=== PATIENT | female | born 1960 | race Caucasian/White ===

== ENCOUNTER 2018-04-28 07:03 | Emergency (ER) | payer MEDICAID ==
[2018-04-28] MEDS ORDERED: Proparacaine 0.5% Ophth Soln 15 ML Bottle EYELF ONE (07:31)
--- NOTE | 2018-04-28 07:56 | EDM.PDOC ---
ED HPI GENERAL MEDICAL PROBLEM - General Chief Complaint: Eye Problems Stated Complaint: SOMETHING IN LEFT EYE Time Seen by Provider: 04/28/18 07:15 Source of Information: Reports: Patient History Limitations: Reports: No Limitations - History of Present Illness INITIAL COMMENTS - FREE TEXT/NARRATIVE: 57-year-old female who was wearing contacts, started to feel some irritation in the left eye a few hours ago. It became much worse so [place] eye but it didn't help. She did take her contact out. She is photophobic. Duration: Hour(s): (3-4 hours of symptoms) Location: Reports: Other (Left eye) Severity: Moderate - Related Data Allergies Allergy/AdvReac Type Severity Reaction Status Date / Time Sulfa (Sulfonamide Allergy Other Verified 04/28/18 07:21 Antibiotics) Home Meds: Home Meds Aspirin [Halfprin] 81 mg PO DAILY 04/28/18 [History] Atenolol 25 mg PO DAILY 04/28/18 [History] Calcium Carbonate [Calcium] 500 mg PO DAILY 04/28/18 [History] Multivitamin [Multivitamins] 1 tab PO DAILY 04/28/18 [History] Past Medical History HEENT History: Reports: Impaired Vision Cardiovascular History: Reports: Hypertension Gastrointestinal History: Reports: None Genitourinary History: Reports: None 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: Endocrine/Metabolic History: Reports: Obesity/BMI 30+ - Past Surgical History Head Surgeries/Procedures: Reports: None HEENT Surgical History: Reports: None Cardiovascular Surgical History: Reports: None GI Surgical History: Reports: Cholecystectomy Female Surgical History: Reports: Section Endocrine Surgical History: Reports: None Dermatological Surgical History: Reports: None Social & Family History - Tobacco Use Smoking Status *Q: Current Every Day Smoker Years of Tobacco use: 25 Packs/Tins Daily: 1 Used Tobacco, but Quit: No Second Hand Smoke Exposure: No - Recreational Drug Use Recreational Drug Use: No ED ROS GENERAL - Review of Systems Review Of Systems: See Below Constitutional: Denies: Fever Respiratory: Denies: Shortness of Breath GI/Abdominal: Denies: Nausea, Vomiting Neurological: Denies: Headache ED EXAM GENERAL W FULL EYE - Physical Exam Exam: See Below Exam Limited By: No Limitations General Appearance: Alert, Mild Distress (Looks very uncomfortable because of the eye discomfort, sitting in the dark) Eye Exam: Left Eye: Conjunctival Injection, Foreign Body Eyelids: Left: Edema, Lid Everted for Exam Conjunctiva & Sclera: Left: Conjunctival Edema, Foreign Body Cornea Exam: Left: Normal Appearance Respiratory/Chest: No Respiratory Distress Course - Vital Signs Last Recorded V/S: Last Vital Signs Temp 97.2 F 04/28/18 07:29 Pulse 84 04/28/18 07:29 Resp 18 04/28/18 07:29 BP 154/80 H 04/28/18 07:29 Pulse Ox 99 04/28/18 07:29 - Orders/Labs/Meds Meds: Medications Discontinued Medications Generic Name Dose Route Start Last Admin Trade Name Freq PRN Reason Stop Dose Admin Proparacaine HCl 1 ml 04/28/18 07:31 04/28/18 07:35 Proparacaine 0.5% Ophth Soln EYELF 04/28/18 07:32 1 ml ONETIME ONE Administration - Re-Assessments/Exams Free Text/Narrative Re-Assessment/Exam: 04/28/18 07:53 Initially proparacaine was put in the eye which gave her immediate relief of symptoms. Fluorescein staining was then done that showed no gross abnormality. The eye was then examined under slit lamp exam, and again showed no corneal ulcers or damage. The lower lid was examined, there was some edema and redness but no foreign body, the upper eyelid was inverted. A very small fragment of eyelash was removed from the medial aspect of the eyelid and a small cystic area was seen just lateral to the midline but no other abnormality was found. The very small piece of eyelash was removed. I'm not sure if this was large enough to cause her significant symptoms. She'll be discharged with gentamicin ointment and I want her to recheck with her primary eye physician later this afternoon or tomorrow morning if not improving satisfactorily. Departure - Departure Time of Disposition: 08:05 Disposition: Home, Self-Care 01 Condition: Good Clinical Impression: Foreign body of eyelid, left - Discharge Information Instructions: Eye Foreign Body Referrals: Neena Sung PA-C [Primary Care Provider] - Forms: ED Department Discharge Care Plan Goals: Use ointment on your eyelid every 6 hours for the next 2-3 days while awake. Recheck with your eye doctor later this afternoon if symptoms have not improved at all, or tomorrow if not improving satisfactorily.
== END 2018-04-28 08:02 | disposition home or self-care (01) ==
LOC: JP.ED 07:03
DX: T15.12XA Foreign body in conjunctival sac, left eye, initial encounter (principal); F17.210 Nicotine dependence, cigarettes, uncomplicated; I10 Essential (primary) hypertension; Z88.2 Allergy status to sulfonamides; Z79.899 Other long term (current) drug therapy; Z79.82 Long term (current) use of aspirin; W45.8XXA Other foreign body or object entering through skin, initial encounter
CPT/HCPCS: 65205; 99283; A9270